=== PATIENT | female | born 1945 | race Caucasian/White ===

== ENCOUNTER 2020-05-27 10:39 | Outpatient (CLI) | payer OTHER, SELFPAY ==
--- NOTE | ~2020-05-27 | MM_ITS ---
EXAMINATION: MM screening [facility] BI w jah HISTORY: Screening mammogram TECHNIQUE: Craniocaudal and mediolateral oblique 3-D tomosynthesis images were obtained and synthetic 2-D images were generated. CAD analysis was submitted and interpreted. COMPARISON: Comparison to multiple prior studies sequentially, with oldest reviewed study dated 12/20. BREAST PARENCHYMAL COMPOSITION: There are scattered areas of fibroglandular density. FINDINGS: There is no evidence of suspicious mass, calcification, or architectural distortion to sugg est malignancy in either breast. There has been no suspicious interval change. IMPRESSION: 1. No mammographic evidence of malignancy. 2. Recommend routine screening mammography in one year. BI-RADS Category 1: Negative Reviewed, dictated and finalized at location A.
== END 2020-05-27 10:40 | disposition home or self-care (01) ==
LOC: ANHIMG 10:47
PROVIDERS: PCP Internal Medicine; Visit Provider Internal Medicine
DX: Z12.31 Encounter for screening mammogram for malignant neoplasm of breast (principal)
CPT/HCPCS: 77063; 77067

== ENCOUNTER 2021-05-30 10:06 | Outpatient (CLI) | payer OTHER, SELFPAY ==
--- NOTE | ~2021-05-30 | MM_ITS ---
EXAMINATION: MM screening [facility] BI w jah HISTORY: Screening mammogram TECHNIQUE: Craniocaudal and mediolateral oblique 3-D tomosynthesis images were obtained and synthetic 2-D images were generated. CAD analysis was submitted and interpreted. COMPARISON: 05/26/2020 bilateral digital screening mammogram 05/24/2019 bilateral diagnostic digital mammogram BREAST PARENCHYMAL COMPOSITION: There are scattered areas of fibroglandular density. FINDINGS: There are scattered bilateral benign calcifications. There is no evidence of suspicious ma ss, calcification, or architectural distortion to suggest malignancy in either breast. There has been no suspicious interval change. IMPRESSION: 1. No mammographic evidence of malignancy. 2. Recommend routine screening mammography in one year. BI-RADS Category 2: Benign finding(s). Reviewed, dictated and finalized at location A.
== END 2021-05-30 10:07 | disposition home or self-care (01) ==
LOC: ANHIMG 10:08
PROVIDERS: PCP Internal Medicine; Visit Provider Internal Medicine
DX: Z12.31 Encounter for screening mammogram for malignant neoplasm of breast (principal)
CPT/HCPCS: 77063; 77067

== ENCOUNTER 2022-07-01 07:56 | Outpatient (CLI) | payer OTHER, SELFPAY ==
--- NOTE | ~2022-07-01 | MM_ITS ---
EXAMINATION: MM screening [facility] BI w jah HISTORY: Screening TECHNIQUE: Craniocaudal and mediolateral oblique 3-D tomosynthesis images were obtained and synthetic 2-D images were generated. CAD analysis was submitted and interpreted. COMPARISON: Comparison to multiple prior studies sequentially, with oldest reviewed study dated 04/28. BREAST PARENCHYMAL COMPOSITION: There are scattered areas of fibroglandular density. FINDINGS: There are developing asymmetries in the upper outer quadrant of both breasts. There are myra ign breast calcifications. No definite architectural distortion. IMPRESSION: 1. Developing nodular asymmetries in the upper outer quadrant of both breasts. 2. Additional mammographic views and possible breast ultrasound are recommended. BI-RADS Category 0: Incomplete: Needs additional imaging evaluation. Reviewed, dictated and finalized at location A. IMPRESSION: 1. Developing nodular asymmetries in the upper outer quadrant of both breasts. 2. Additional mammographic views and possible breast ultrasound are recommended . BI-RADS Category 0: Incomplete: Needs additional imaging evaluation.
== END 2022-07-01 07:57 | disposition home or self-care (01) ==
PROVIDERS: PCP Internal Medicine; Visit Provider Internal Medicine
DX: Z12.31 Encounter for screening mammogram for malignant neoplasm of breast (principal); R92.8 Other abnormal and inconclusive findings on diagnostic imaging of breast
CPT/HCPCS: 77063; 77067

== ENCOUNTER 2022-07-21 13:24 | Outpatient (CLI) | payer OTHER, SELFPAY ==
--- NOTE | ~2022-07-21 | MMUS_ITS ---
EXAMINATION: MM diagnostic [facility] BI w jah, US breast BI limited HISTORY: Developing nodular asymmetries reported in upper outer quadrant of both breasts on 07/01/2022 screening mammogram examination TECHNIQUE: Additional full field ML and ML, MLO and spot CC 3-D tomosynthesis images of both breasts were performed and synthetic 2-D images were generated. CAD analysis was submitted and interpreted. H igh resolution upper outer and lower-outer quadrant bilateral breast ultrasound was performed. COMPARISON: 07/01/2022 bilateral screening mammogram FINDINGS: MAMMOGRAPHIC FINDINGS: No suspicious mass or architectural distortion, malignant calcification, skin thickening or retractio n is evident. Scattered bilateral benign calcifications. ULTRASOUND: No suspicious mass, shadowing or cyst or other significant sonographic abnormality is identified in t he outer half of either breast is sonographically. IMPRESSION: 1. No mammographic evidence of malignancy 2. Routine mammographic screening is recommended BI-RADS Category 2: Benign finding(s). Reviewed, dictated and finalized at location A. IMPRESSION: 1. No mammographic evidence of malignancy 2. Routine mammographic screening is recommended BI-RADS Category 2: Benign finding(s).
== END 2022-07-21 13:25 | disposition home or self-care (01) ==
PROVIDERS: PCP Internal Medicine; Visit Provider Internal Medicine
DX: N64.89 Other specified disorders of breast (principal)
CPT/HCPCS: 76642; 77062; 77066; G0279

== ENCOUNTER 2025-08-13 13:55 | Outpatient (CLI) | payer MEDICARE, SELFPAY ==
--- OUTSIDE RECORDS SUMMARY | 2025-08-13 13:30 | XMS_ITS | Encounter Summary ---
Author Organization [facility] Address [address] [place] [address] Care Team Providers Care Senior Asic Engineer Name Role Phone Unavailable Primary Care Provider Unavailabl e Reason for Referral * Radiology Services (Routine) - Open Specialty Diagnoses / Procedures Referred By Contac t Referred To Contact Diagnoses Leukopenia, unspecified type Procedures US ABDOMEN COMPLETE Kishore Bee MD [address] [facility] [address] [place] [address] Phone: tel: fax: Referral ID Status Reason Start Date Expiration Date Visits Re quested Visits Authorized [id number] Open 08/13/2025 09/13/2026 1 1 Reason for Visit * Reason Comments Establish Care Encounter Details Date Type Department Care Team (Late st Contact Info) Description 08/13/2025 1:30 PM CDT Office Visit [facility] Oncology and Hematology - [place] [address] [place] [address] [address] [place] [address] Kishore Bee MD [facility] [employer] [address] [place] [address] Chronic anemia (Primary Dx); Leukopenia, unspecified type Social History Tobacco Use Types Packs/Day Years Used Date Smoking Tobacco: Former Cigarettes 1 10 1 - 08/13/1975 Smokeless Tobacco: Never Tobacco Cessation:Counseling Given: Not Answered Alcohol Use Standard Drinks/Week Comments Yes 0 (1 standard drink = 0.6 oz pur e alcohol) Occasionally Comments Unknown Sex and Gender Information Value Date Recorded Sex Assigned at Not on file Legal Sex Female 11:33 AM CDT Gender Identity Not on file Sexual Orientation Not on file documented as of this encounter Last Filed Vital Signs Vital Sign Reading Time Taken Comments Blood Pressure 131/70 08/13/2025 1:06 PM CDT Pulse 65 08/13/2025 1:06 PM CDT Temperature 36.3 C (97.4 F) 08/13/2025 1:06 PM CDT Respiratory Rate 16 08/13/2025 1:06 PM CDT Oxygen Saturation 97% 08/13/2025 1:06 PM CDT Inhaled Oxygen Concentration - - Weight 91.4 kg (201 lb 6.4 oz) 08/13/2025 1:06 P M CDT Height 165.1 cm (5' 5) 08/13/2025 1:06 PM CDT Body Mass Index 33.51 08/13/2025 1:06 PM CDT documented in this encounter Progress Notes * Kishore Bee MD - 08/13/2025 1:05 PM CDT Hematology-oncology consult Note Requesting Physician Primary Care Physician No primary care provider on file. Problem list There is no problem list on file for this patient. Previous TREATMENT ? Measurable Disease ? Reason for Visit Yareli Morales is a 80 y.o. female who was referred for consultation for leukopenia. History of present illness The is a pleasant 80-year-old female who is been in good health except history of hypothyroidism, hyperlipidemia and arthritis involving the back and the hands. She denies any night sweats fevers and chills. Her weight and appetite stable. She denies any new lumps bumps and lymphadenopathy. Denies any bleeding and bruising. She denies being a vegetarian. She had labs done in April 2025 showed slightly low WBC count of 3.7 with hemoglobin of 13.9. She denies any frequent infections. According to patient her WBC count are slowly declining. She has no new complaints. Past Medical History Past Medical History: Diagnosis Date Hyperlipidemia Hypothyroidism Surgical History Past Surgical History: Procedure Laterality Date HX HYSTERECTOMY Medications Current Outpatient Medications Medication Sig Dispense Refill levothyroxine 75 mcg tablet Take 75 mcg by mouth daily. No current facility-administered medications for this visit. Allergies No Known Allergies Immunizations: Immunization History Administered Date(s) Administered (Moderna Bivalent)(6 Mos Up) COVID-19 Vaccine - Emergency Use Authorization, MRNA(Pf) 50 Mcg/0.5 MlIm Susp 11/03/2022 (SPIKEVAX) (12 YRS UP PRIMARY SERIES) COVID-19 VACCINE - MRNA-1273(PF) 100 MCG/0.5 ML IM SUSP 09/15/2021, 06/07/2022 Family History Family History Problem Relation Name Age of Onset No Known Problems Father Heart Attack Mother Diabetes Brother Atrial fibrillation Brother Diabetes Brother Heart Disease Brother Social History Social History Tobacco Use Smoking status: Former Current packs/day: 0.00 Average packs/day: 1 pack/day for 10.0 years (10.0 ttl pk-yrs) Types: Cigarettes Start date: 08/13/1965 Quit date: 08/13/1975 Years since quittin.0 Smokeless tobacco: Never Substance Use Topics Alcohol use: Yes Comment: Occasionally Review of Systems Constitutional: Patient did not mention fever; no night sweats; no anorexia; no weight loss; no fatique NEENT: Patient did not mention headache; no change in vision; no change in hearing; no sore throat;no dysphagia Respiratory: Patient did not mention shortness of breath; no pleuritic chest pain; no cough; no hemoptysis Cardiac: Patient did not mention cardiac-like chest pain; no palpitations; no orthopnea; no PND; noDOE Breasts: Patient did not mention tenderness; no masses GI: Patient did not mention abdominal pain; no nausea; no vomiting; no diarrhea; no hematochezia; no melena : Patient did not mention dysuria; no frequency; no hesitancy; no hematuria COMMAND AND CONTROL SPECIALIST: Musculosketetal: Patient did not mention bone pain; no arthralgia; no joint swelling; no myalgia; Skin: Patient did not mention pruritis; no rash; no petechiae; no ecchymoses Endocrine: Patient did not mention polydipsia; no polyuria; no unusual weight gain Neuro: Patient did not mention headache; no change in vision; no sensory changes; no muscle weakness; no confusion; no seizures Psych: Patient did not mention anxiety; no depression; Physical Exam Vitals: As per nursing note Constitutional: Well developed, well nourished, no acute distress, non-toxic appearance Teeth and gum. No signs of infection or swelling. Eyes: PERRL, conjunctiva normal HEENT: Atraumatic, external ears normal, nose normal, oropharynx moist, no pharyngeal exudates. no sinus tenderness Neck- normal range of motion, no tenderness, supple Respiratory: No respiratory distress, normal breath sounds, no rales, no wheezing Cardiovascular: Normal rate, normal rhythm, no murmurs, no gallops, no rubs GI: Soft, nondistended, normal bowel sounds, nontender, no splenomegaly, no hepatomegaly, no mass, no rebound, no guarding : No costovertebral angle tenderness Musculoskeletal: No edema, no tenderness, no deformities. Back- no tenderness Integument: Well hydrated, no rash, Digits and nails inspection normal Lymphatic: No lymphadenopathy noted Neurologic: Alert & oriented x 3, CN 2-12 normal, normal motor function, normal sensory function, no focal deficits noted Psychiatric: Speech and behavior appropriate ? labs No results found for this or any previous visit (from the past 24 hours). Labs from April 2025 showed WBC 3.7 hemoglobin 13.9 MCV 94.6 platelet 227,000 neutrophils 62% lymphocyte 26% Pathology ? Imaging & Other Studies Performance Status? Assessment / Plan: ? Leukopenia. Patient is a pleasant 80-year-old female who has been in good health except history of hypothyroidism and hyperlipidemia referred to me for leukopenia. According the patient herwhite blood cell count is slowly declining. She denies any history of liver disease.Denies any history of alcohol abuse. She does have some arthralgia but denies any history of autoimmune disease. I have discussed the differential diagnosis of leukopenia with the patient that includes autoimmune leukopenia, nutritional deficiencies, drug induced leukopenia, infection related leukopenia, hepatosplenomegaly and lymphoproliferative disorders and bone marrow disorder like MDS. We also discussed possibility of benign essential leukopenia. I will order the workup that will include CBC with differential, CMP, SABRINA, flow cytometric analysis for leukemia, iron studies, vitamin B12 level, methylmalonic acid level, soluble transferrin receptor and abdominal ultrasound. No need for pulmonary biopsy dayna ting at this time. I will discuss these results with patient in 2 weeks. I have answered all questions to patient's satisfaction. Hypothyroidism. Patient is on levothyroxine. Thank you very much for allowing me to participate in Yareli [place]'s evaluation and management. Please feel free to contact if I can be of any further assistance in your patient???s care requiringhematology or oncology evaluation. Sincerely, ? ? Kishore Bee M.D. cell TOBACCO COUNSELING She is not a tobacco/nicotine user. Kishore Bee MD ,08/13/2025 1:59 PM ? Total time spent 60 minutes, two third of the total time spent counseling patient [id number]. CC:? documented in this encounter Plan of Treatment Upcoming Encounters Date Type Department Care Team (Late st Contact Info) Description 09/02/2025 4:30 PM CDT Telephone Check Up [facility] Oncology and Hematology - [place] [address] [facility] [address] [place] [address] Kishore Bee MD [address] [facility] [address] [place] [address] Scheduled Orders Name Type Priority Associated Diagnoses Orde r Schedule SABRINA SCREEN W/REFLEX Lab Routine Chronic anemia Leukopenia, unspecified type Expected: 08/13/2025, Expires: 08/13/2026 CBC WITH DIFFERENTIAL Lab Stat Chronic anemia Leukopenia, unspecified type Expected: 08/13/2025, Expires: 08/13/2026 COMPREHENSIVE METABOLIC PANEL Lab Stat Chronic anemia Leukopenia, unspecified type Expected: 08/13/2025, Expires: 08/13/2026 FLOW CYTOMETRY PANEL Lab Routine Chronic anemia Leukopenia, unspecified type Expected: 08/13/2025, Expires: 08/13/2026 FERRITIN Lab Routine Chronic anemia Expected: 08/13/2025, Expires: 08/13/2026 IRON, TIBC, AND PERCENT SATURATION Lab Routine Chronic anemia Expected: 08/13/2025, Expires: 08/13/2026 METHYLMALONIC ACID Lab Routine Chronic anemia Expected: 08/13/2025, Expires: 08/13/2026 VITAMIN B12 AND FOLATE Lab Routine Chronic anemia Expected: 08/13/2025, Expires: 08/13/2026 TRANSFERRIN RECEPTOR TFR SOLUBLE Lab Routine Chronic anemia Expected: 08/13/2025, Expires: 08/13/2026 US ABDOMEN COMPLETE Imaging Routine Leukopenia, unspecified type 1 Occurrences starting 08/13/2025 until 08/13/2026 documented as of this encounter Visit Diagnoses Diagnosis Chronic anemia- Primary Anemia, unspecified Leukopenia, unspecified type documented in this encounter
--- NOTE | 2025-08-13 14:15 | CY_PTH ---
PATIENT: Yareli Morales LOC: [facility] U#:[id number] AGE/SX: 80/F ROOM: RE08/13/[address]: Kishore Bee MD : [id number] BED: DIS: 08/13/2025 SPEC #: [id number] RECD: 08/14/25 07:03 STATUS: OTTO REQ #: [id number] CHALO: 08/13/25 14:[address]: Kishore Bee DEPT: [facility] Cytology RECD BY: Elaine Johnson ENTERED: 08/14/25 07:04 SP TYPE: Cytology OT DR: Rosenda WagonerMD Tissues: A - Flow Procedures: Flow Cytometry
[2025-08-13 14:19] LABS: Hematocrit 40.1 % (37.0-47.0); Hemoglobin 13.2 g/dL (12.0-15.0); Immature Granulocyte Percent A 0.2 % (0-0.5); Lymphocytes Absolute Auto 1.26 K/mm3 (0.9-3.2); Mean Corpuscular HGB Conc 32.9 g/dl (32-36); Mean Corpuscular Hemoglobin 31.1 pg (26-34); Mean Corpuscular Volume 94.4 fl (80-100); Nucleated Red Blood Cells Absolute Auto 0.000 K/mm3 (0.0-0.012); Nucleated Red Blood Cells Perc 0.0 % (0.0-0.2); Platelet Count Result 236 k/mm3 (150-375); Red Blood Count 4.25 M/mm3 (4.2-5.4); White Blood Count 5.3 K/mm3 (4.5-10.0)
--- OUTSIDE RECORDS SUMMARY | 2025-08-13 14:50 | XMS_ITS | Patient Health Record ---
Author Organization 1 OF [facility] Address [address] [place] [address] Care Team Providers Care Director Of Income Tax Name Role Phone Sandoval, Bala Primary Care Provider Diana Perez Unavailable [phone] Allergies No Known Allergies Reason For Referral No Information Medications Medication SIG (Take, Route, Fr equency, Duration) Notes Start Date End Date Status Levothyroxine Sodium Active Social History Tobacco Use: Social History Observation Description Date Details (start date - stop date) Former Smoker NA - NA Social History Tobacco Use: Social Info Question Answer Notes Tobacco Control (Standard) Tobacco use: Former smoker How long has it been since you last smoked? Greater than 10 years Additional Details Category Social Info Options Details Drugs/Alcohol: Alcohol use: Social alcoho l use Problems Problem Type SNOMED Code ICD Code Onset Dates Problem Status W/U Status Risk Notes Problem Plantar fascial fibromatosis (39840709) Plantar fasciitis, right (M72.2) Active confirmed Vital Signs Height 65 in 03/21/2025 Weight 200 lbs 03/21/2025 BMI 33.28 kg/m2 03/21/2025 Encounters Encounter Location Date Provider Diagnosis 1 OF [facility] [address] [place] [address] 03/21/2025 Diana Barton Plantar fasciitis, right M72.2 ; Right Achilles tendinitis M76.61 and Right foot pain M79.671 Assessments Encounter Date Diagnosis (ICD Code) Assessment Notes Treatment Notes Treatment Clinical Notes Section Notes 03/21/2025 Plantar fasciitis, right (ICD-10 - M72.2) Patient visit today included a review of medical history, review of systems, physical exam and discussion of exam findings, test results, and discussed the nature and etiology of plantar fasciitis/Kopperl s tendonitis as well as treatment options. I discussed the importance of wearing good supportive shoes and avoiding ambulation in slippers, flip flops or walking barefoot and I encouraged the patient to wear a good quality athletic sneaker whenever possible. Discussed treatment options today including stretching exercises, icing, Rx NSAIDs, prefab orthotics, steroid injections, physical therapy, use of a night splint, immobilization. Dispensed literature regarding plantar fasciitis. She was given stretching exercises to perform. She will continue to ice her foot. She will consider purchasing prefabricated orthotics. 03/21/2025 Right Achilles tendinitis (ICD-10 - M76.61) 03/21/2025 Right foot pain (ICD-10 - M79.671) Plan Of Treatment No Information Insurance Providers Payer Name Payer Address Payer Phone Subscriber Number Group Number Insured Name Patient Relationship to Insured Coverage Start Date Coverage End Date [employer] Medicare Complete [address] [address] [place] [address] [id number] Yareli Morales Self - patient is the insured Medical (General) History Medical History History ICD Code Arthritis
--- OUTSIDE RECORDS SUMMARY | 2025-08-13 14:50 | XMS_ITS | Clinical Summary ---
Author Organization [facility] [address]on[address]dalla [address] Address [address] [place] [address] Care Team Providers Care Steam Trap Worker Name Role Phone Unavailable Primary Care Provider Unavailabl e Allergies No known active allergies Medications levothyroxine 75 mcg tablet Take 75 mcg by mouth daily. Active Active Problems No known active problems Encounters Date Type Department Care Team Description 08/13/2025 1:30 PM CDT Office Visit [facility] Oncology and Hematology [facility] [address] [place] [address] Kishore Bee MD Chronic anemia (Primary Dx); Leukopenia, unspecified type 08/13/2025 Abstract [facility] Oncology and [facility] [address] [place] [address] Kishore Bee MD from Last 3 Months Family History Medical History Relation Name Comments Atrial fibrillation Brother 1 Diabetes Brother 1 Diabetes Brother 2 Heart Disease Brother 2 No Known Problems Father Heart Attack Mother Relation Name Status Comments Brother 1 Alive Brother 2 Father Mother Social History Tobacco Use Types Packs/Day Years [...] on file Sexual Orientation Not on file Last Filed Vital Signs Vital Sign Reading [...] Mass Index 33.51 08/13/2025 1:06 PM CDT Plan of Treatment Upcoming Encounters Date Type Department Care Team (Late st Contact Info) Description 09/02/2025 4:30 PM CDT Telephone Check Up [facility] Oncology and Hematology - [place] [address] [facility] [address] [place] [address] Kishore Bee MD [address] [facility] [address] [place] [address] Health Maintenance Due Date Last Done Comments OSTEOPOROSIS SCREENING 2009 RSV VACCINE (60+ or ) (1 - 1-dose 75+ series) 2019 ZOSTER VACCINE (2 of 2) 01/01/2022 11/06/2021, 04/26 INFLUENZA VACCINE (#1) 2025 , 08/04/2022, 07/06/2021, Additional history exists COVID-19 Vaccine (6 - 2024-2 6 season) 2025 11/03/2022, 06/07/2022, 09/15/2021, Additional history exists DTAP/TDAP/TD VACCINES (3 - T d or Tdap) 09/15/2028 09/15/2018, 07/24/2007 PNEUMOCOCCAL VACCINE 50+ YEARS Completed 03/06/2018 , 09/18/2013 Medicare [place]) Preventative Visit/Annual Wellness Visit Completed 05/03/2025 Insurance [place] [id number]
--- OUTSIDE RECORDS SUMMARY | 2025-08-13 14:50 | XMS_ITS | Encounter Summary ---
Author Organization [facility] Health Address [address] [place] [address] Care Team Providers Care Ged Preparation Teacher Name Role Phone Unavailable Primary Care Provider Unavailabl e Prior Encounters Date Type Department Care Team Description 11/26/2019 Converted 13x Documents [facility] [address] [place] [address] <No scans attached> 11/26/2019 Converted CPS Chart Documents [facility] [address] [place] [address] <No scans attached> Plan of Treatment Not on file Procedures Procedure Name Priority Date/Time Associated Diagnosis Comments TREATMENT OF COMPLICATIONS (POST-SURGICAL) - UNUSUAL CIRCUMSTANCES, BY REPORT Routine 12/25/2019 12:00 AM PST 18 BONE REPLACEMENT GRAFT FOR RIDGE PRESERVATION - PER SITE Routine 11/08/2019 12:00 AM PST 15 BONE REPLACEMENT GRAFT FOR RIDGE PRESERVATION - PER SITE Routine 11/08/2019 12:00 AM PST 18 GUIDED TISSUE REGENERATION, NATURAL TEETH - RESORBABLE BARRIER, PER SITE Routine 11/08/2019 12:00 AM PST 15 GUIDED TISSUE REGENERATION, NATURAL TEETH - RESORBABLE BARRIER, PER SITE Routine 11/08/2019 12:00 AM PST 14 UL OSSEOUS SURGERY ONE TO THREE CONTIGUOUS TEETH Routine 11/08/2019 12:00 AM PST 19 LL OSSEOUS SURGERY ONE TO THREE CONTIGUOUS TEETH Routine 11/08/2019 12:00 AM PST 18 EXTRACTION, ERUPTED TOOTH REQUIRING REMOVAL OF BONE AND/OR SECTIONING OF TOOTH Routine 11/08/2019 12:00 AM PST 15 EXTRACTION, ERUPTED TOOTH REQUIRING REMOVAL OF BONE AND/OR SECTIONING OF TOOTH Routine 11/08/2019 12:00 AM PST IMPLANT /ABUTMENT SUPPORTED REMOVABLE DENTURE FOR EDENTULOUS ARCH MAXILLARY Routine 10/23/2019 12:00 AM PST 14 IMPLANT Routine 10/23/2019 12:00 AM PST PERIO CONSULT Routine 10/23/2019 12:00 AM PST ORAL HYGIENE INSTRUCTIONS Routine 2018 12:00 AM PST ADJUNCTIVE PRE-DIAGNOSTIC TEST THAT AIDS IN DETECTION OF MUCOSAL ABNORMALITIES Routine 10/17/2019 12:00 AM PST PERIODIC ORAL EVALUATION - ESTABLISHED PATIENT Routine 10/17/2019 12:00 AM PST PERIO MAINTENANCE Routine 10/17/2019 12: 00 AM PST BITEWINGS - FOUR RADIOGRAPHIC IMAGES Routine 10/17/2019 12:00 AM PST ADDITIONAL X-RAY Routine 10/17/2019 12:0 0 AM PST ADDITIONAL X-RAY Routine 10/17/2019 12:0 0 AM PST ADDITIONAL X-RAY Routine 10/17/2019 12:0 0 AM PST ADDITIONAL X-RAY Routine 10/17/2019 12:0 0 AM PST ADDITIONAL X-RAY Routine 10/17/2019 12:0 0 AM PST SINGLE X-RAY Routine 10/17/2019 12:00 AM PST UL SHER DECON/QD Routine 01/11/2019 12:00 AM PST UL PERIODONTAL SCALING AND ROOT PLANING - FOUR OR MORE TEETH PER QUADRANT Routine 01/11/2019 12:00 AM PST LL PERIODONTAL SCALING AND ROOT PLANING - FOUR OR MORE TEETH PER QUADRANT Routine 01/11/2019 12:00 AM PST ORAL HYGIENE INSTRUCTIONS Routine 2018 12:00 AM PST LR SHER DECON/QD Routine 01/11/2019 12:00 AM PST LL SHER DECON/QD Routine 01/11/2019 12:00 AM PST UR SHER DECON/QD Routine 01/11/2019 12:00 AM PST LOCAL ANESTHESIA IN CONJUNCTION WITH OPERATIVE OR SURGICAL PROCEDURES Routine 01/11/2019 12:00 AM PST UR PERIODONTAL SCALING AND ROOT PLANING - FOUR OR MORE TEETH PER QUADRANT Routine 12/26/2018 12:00 AM PST LR PERIODONTAL SCALING AND ROOT PLANING - FOUR OR MORE TEETH PER QUADRANT Routine 12/26/2018 12:00 AM PST ORAL HYGIENE INSTRUCTIONS Routine 2018 12:00 AM PST LOCAL ANESTHESIA IN CONJUNCTION WITH OPERATIVE OR SURGICAL PROCEDURES Routine 12/26/2018 12:00 AM PST 14 IMPLANT CROWN UNIT Routine 12/04/2018 12:00 AM PST 29 DO AMALGAM 2 SURFACE Routine 12/04/19 19 12:00 AM PST 30 ENDODONTIC THERAPY, MOLAR TOOTH (EXCLUDING FINAL MORMONISM) Routine 12/04/2018 12:00 AM PST 30 CROWN PFM POST Routine 12/04/2018 12: 00 AM PST 19 CROWN PFM POST Routine 12/04/2018 12: 00 AM PST 15 CROWN PFM POST Routine 12/04/2018 12: 00 AM PST ADJUNCTIVE PRE-DIAGNOSTIC TEST THAT AIDS IN DETECTION OF MUCOSAL ABNORMALITIES Routine 12/04/2018 12:00 AM PST COMPREHENSIVE ORAL EVALUATION - NEW OR ESTABLISHED PATIENT Routine 12/04/2018 12:00 AM PST PANORAMIC RADIOGRAPHIC IMAGE Routine 12/04/2018 12:00 AM PST INTRAORAL - COMPREHENSIVE SERIES OF RADIOGRAPHIC IMAGES Routine 12/04/2018 12:00 AM PST PLAN VISIT FEE Routine 12/04/2018 12:00 AM PST INTRAORAL PHOTO Routine 12/04/2018 12:00 AM PST INTRAORAL PHOTO Routine 12/04/2018 12:00 AM PST INTRAORAL PHOTO Routine 12/04/2018 12:00 AM PST INTRAORAL PHOTO Routine 12/04/2018 12:00 AM PST 31 MO COMPOSITE FILLING Routine 12/04/19 19 12:00 AM PST 20 DO COMPOSITE FILLING Routine 12/04/19 19 12:00 AM PST 18 MO COMPOSITE FILLING Routine 12/04/19 19 12:00 AM PST 5 DO COMPOSITE FILLING Routine 9 12:00 AM PST 4 DO COMPOSITE FILLING Routine 9 12:00 AM PST 13 CROWN Routine 12/04/2018 12:00 AM PST 12 CROWN Routine 12/04/2018 12:00 AM PST 3 MODBL COMPOSITE FILLING Routine 2018 12:00 AM PST Visit Diagnoses Not on file
--- OUTSIDE RECORDS SUMMARY | 2025-08-13 14:50 | XMS_ITS | Clinical Summary ---
Author Organization [facility] Address [address] [place] [address] Care Team Providers Care Gas Meter Repair Supervisor Name Role Phone Unavailable Primary Care Provider Unavailabl e Social History Tobacco Use Types Packs/Day Years Used Date Smoking Tobacco: Never Assessed Comments Unknown Sex and Gender Information Value Date Recorded Sex Assigned at Not on file Legal Sex Female 12:20 AM CDT Gender Identity Not on file Sexual Orientation Not on file Plan of Treatment Health Maintenance Due Date Last Done Comments DTaP, Tdap and Td Vaccines ( 1 - Tdap) 1963 Zoster Vaccines (1 of 2) 1994 Annual Medicare Wellness Visit 2009 Dexa Scan (General) 2009 Pneumococcal Vaccine: 50+ Ye ars (2 of 2 - PPSV23) 03/06/2019 03/06/2018 RSV Immunization or 60+ Years (1 - 1-dose 75+ series) 2019 COVID-19 Vaccine ( - 2023-2 5 season) 2025 Meningococcal B Vaccine Aged Out No l onger eligible based on patient's age to complete this topic Meningococcal Vaccine Aged Out No swati gonzalo eligible based on patient's age to complete this topic RSV Immunizations Under 20 Months Aged Out No longer eligible based on patient's age to complete this topic Insurance [employer]
--- OUTSIDE RECORDS SUMMARY | 2025-08-13 14:50 | XMS_ITS | Clinical Summary ---
Author Organization [facility] Health Address [address] [place] [address] Care Team Providers Care Labor Union Business Representative Name Role Phone Unavailable Primary Care Provider Unavailabl e Social History Tobacco Use Types Packs/Day Years Used Date Smoking Tobacco: Never Assessed Comments Unknown Sex and Gender Information Value Date Recorded Sex Assigned at Not on file Legal Sex Unknown 11/29/2019 1:24 AM PST Gender Identity Not on file Sexual Orientation Not on file Plan of Treatment Not on file
--- OUTSIDE RECORDS SUMMARY | 2025-08-13 14:50 | XMS_ITS | Encounter Summary ---
Author Organization [facility] Beck [facility] Address [address] [place] [address] Care Team Providers Care Mononitrotoluene Operator Name Role Phone Unavailable Primary Care Provider Unavailabl e Encounter Details Date Type Department Care Team ([facility] Contact Info) Description 08/13/2025 Abstract [facility] Oncology and Hematology - [address] [place] [address] Kishore Bee MD [address] [place] [address] [employer] [address] [place] [phone] Social History Tobacco Use Types Packs/Day Years Used Date Smoking Tobacco: Former Cigarettes 1 10 1 - 08/13/1975 Smokeless Tobacco: Never Alcohol Use Standard Drinks/Week Comments Yes 0 (1 standard drink = 0.6 oz pur e alcohol) Occasionally Comments Unknown Sex and Gender Information Value Date Recorded Sex Assigned at Not on file Legal Sex Female 11:33 AM CDT Gender Identity Not on file Sexual Orientation Not on file documented as of this encounter Plan of Treatment Upcoming Encounters Date Type Department Care Team (Late Contact Info) Description 09/02/2025 4:30 PM CDT Telephone Check Up [facility] Oncology and Hematology - [address] [place] [address] Kishore Bee MD [address] [employer] [address] [place] [address] documented as of this encounter Visit Diagnoses Not on filedocumented in this encounter
[2025-08-13 16:20] LABS: Iron 125 ug/dL (37-170)
[2025-08-13 16:21] LABS: Alanine Aminotransferase 19 U/L (6-35); Albumin Level 4.1 g/dL (3.5-5.1); Alkaline Phosphatase 69 U/L (38-126); Anion Gap 7 mmol/L (4-12); Aspartate Amino Transferase 43 U/L (14-36); Bilirubin,Total 0.4 mg/dL (0.2-1.3); Blood Urea Nitrogen 17 mg/dL (7-17); Calcium 9.1 mg/dL (8.4-10.2); Carbon Dioxide 27 mmol/L (22-30); Chloride 103 mmol/L (98-107); Estimated Glomerular Filt Rate > 60; Glucose 96 mg/dL (65-110); Potassium 4.2 mmol/L (3.4-5.0); Sodium 137 mmol/L (137-145); Total Protein 7.4 g/dL (6.3-8.2)
[2025-08-13 16:30] LABS: Percent Iron Saturation 38 % (20-50)
[2025-08-13 17:01] LABS: Ferritin 75.40 ng/mL (11.1-264)
[2025-08-13 17:33] LABS: Vitamin B12 380.0 pg/mL (239-931)
[2025-08-14 18:07] LABS: ANA by IFA Rfx Titer/Pattern Negative (.)
== END 2025-08-13 13:56 | disposition home or self-care (01) ==
PROVIDERS: PCP Internal Medicine; Visit Provider Internal Medicine Hematology & Oncology
DX: D64.9 Anemia, unspecified (principal); D72.819 Decreased white blood cell count, unspecified
CPT/HCPCS: 36415; 80053; 82607; 82728; 82746; 83540; 83550; 84238; 85025; 86038; 88184

== ENCOUNTER 2025-08-26 07:39 | Outpatient (CLI) | payer MEDICARE, SELFPAY ==
--- NOTE | ~2025-08-26 | US_ITS ---
Examination: US abdomen complete Clinical History: leukopenia . Comparison: None Technique: Complete abdominal sonography Findings: Liver: Normal size. Normal echotexture. No intrahepatic biliary ductal dilatation. Normal hepatopedal flow main portal vein. Common duct: Normal caliber, 4 mm. Gallbladder: No stones. No wall thickening. No pericholecystic fluid. Spleen: Unremarkable. Pancreas: Visualized portions unremarkable. Kidneys: Unremarkable. Aorta: No aneurysmal dilatation. Retrohepatic IVC: Unremarkable. IMPRESSION: 1. No acute findings. Reviewed, dictated and finalized at location R. IMPRESSION: 1. No acute findings.
--- OUTSIDE RECORDS SUMMARY | 2025-08-26 07:49 | XMS_ITS | Encounter Summary ---
Author Organization [facility] Beck [facility] Address [address] [place] [address] Care Team Providers Care Diathermy Equipment Repairer Name Role Phone Unavailable Primary Care Provider Unavailabl e Encounter Details Date Type Department Care Team ([facility] Contact Info) Description 08/21/2025 Orders Only [facility] Oncology and Hematology - [address] [place] [address] Kishore Bee MD [facility] [employer] [address] [place] [phone] Social History Tobacco Use Types Packs/Day [...] 09/02/2025 4:30 PM CDT Telephone Check Up [facility] Oncology and Hematology - [address] [place] [address] Kishore Bee MD [address] [employer] [address] [place] [address] documented as of this encounter Procedures Procedure Name Priority Date/Time Associated Diagnosis Comments CHG SOLUBLE TRANSFERRIN RECEPTOR Routine 08/13/2025 12:41 PM CDT documented in this encounter Results * CHG SOLUBLE TRANSFERRIN RECEPTOR (08/13/2025 12:41 PM CDT) Kishore Bee MD [facility] - LABORATORY Final Result documented in this encounter Visit Diagnoses Not on filedocumented in this encounter
--- OUTSIDE RECORDS SUMMARY | 2025-08-26 07:49 | XMS_ITS | Clinical Summary ---
Author Organization [facility] Health Address [address] [place] [address] Care Team Providers Care Coal Getter Name Role Phone Unavailable Primary Care Provider [...]
--- OUTSIDE RECORDS SUMMARY | 2025-08-26 07:49 | XMS_ITS | Clinical Summary ---
Author Organization [facility] Address [address] [place] [address] Care Team Providers Care Marketing Operations Associate Name Role Phone Bala Sandoval MD Primary Care Provider [phone] Encounters Date Type Department Care Team Description 08/21/2025 8:12 AM CDT - 08/21/2025 11:59 PM CDT Hospital Encounter [facility] [address] [place] [phone] Abnormal mammogram Discharge Disposition: Discharge to home or self care 08/21/2025 8:12 AM CDT - 08/21/2025 11:59 PM CDT Hospital Encounter [facility] [address] [place] [phone] Abnormal mammogram Discharge Disposition: Discharge to home or self care 08/15/2025 1:20 PM CDT - 08/15/2025 11:59 PM CDT Hospital Encounter [facility] [address] [place] [phone] Screening mammogram, encounter for Discharge Disposition: Discharge to home or self care from Last 3 Months Surgical History Surgery Date Site/Laterality Comments HYSTERECTOMY Family History Medical History Relation Name Comments Heart disease Brother 1 Family history of cardiac disorder - (Added by TW Conv) Diabetes Brother 2 Family history of diabetes mellitus - (Added by TW Conv) Arthritis Father Family history of arthritis - (Added by TW Conv) Diabetes Father Family history of diabetes mellitus - (Added by TW Conv) Gout Father Family history of gout - (Added by TW Conv) Hypertension Father Family history of hypertension - (Added by TW Conv) Arthritis Mother Family history of arthritis - (Added by TW Conv) Heart disease Mother Family history of cardiac disorder - (Added by TW Conv) Relation Name Status Comments Brother 1 Brother 2 Father Mother Social History Tobacco Use Types Packs/Day Years Used Date Smoking Tobacco: Former Comments No Sex and Gender Information Value Date Recorded Sex Assigned at Not on file Legal Sex Female 7:08 PM CYTOLOGY SUPERVISOR Gender Identity Not on file Sexual Orientation Not on file Obstetrics History Para Term AB IAB SAB Ectopic Multiple Livin g Live Births 0 0 0 0 0 0 0 0 0 0 0 Last Filed Vital Signs Vital Sign Reading Time Taken Comments Blood Pressure - - Pulse - - Temperature - - Respiratory Rate - - Oxygen Saturation - - Inhaled Oxygen Concentration - - Weight 83.6 kg (184 lb 5.9 oz) 08/18/2017 10:03 AM CDT Height 167.6 cm (5' 6) 08/18/2017 10:03 AM CDT Body Mass Index 29.76 08/18/2017 10:03 AM CDT Plan of Treatment Health Maintenance Due Date Last Done Comments Depression Screening 1944 Fall Risk Assessment 1944 Osteoporosis Screening-Bone Density Scan 1944 Hepatitis B Screening 1962 Well Visit 65+ 2009 Zoster Vaccine (2 of 2) 01/01/2022 11/06/2021, 04/26 Covid-19 Vaccine (6 - 2024-2 6 season) 2025 03/30/2023, 06/07/2022, 09/15/2021, Additional history exists DTaP/Tdap/Td Vaccine (4 - Td or Tdap) 09/15/2028 09/15/2018, 07/24/2007, 07/24/2007 Pneumococcal vaccine 65+ Completed 03/06/2018, 09/07 Influenza Vaccine Completed 08/12/2025, , 08/04/2022, Additional history exists Procedures Procedure Name Priority Date/Time Associated Diagnosis Comments US BREAST LEFT LIMITED Schedule Routine, Read Routine (OP Routine) 08/21/2025 9:19 AM CDT Abnormal mammogram DIAGNOSTIC MAMMOGRAM LEFT W VITALIY Schedule Routine, Read Routine (OP Routine) 08/21/2025 8:23 AM CDT Abnormal mammogram SCREENING MAMMOGRAM BILATERAL W VITALIY Schedule Routine, Read Routine (OP Routine) 08/15/2025 1:42 PM CDT Screening mammogram, encounter for from Last 3 Months Results * US Breast Left Limited (08/21/2025 9:19 AM CDT) Anatomical Region Laterality Modality Breast Left Ultrasound 08/21/2025 9:26 AM CDT Impressions 08/21/2025 9:26 AM CDT No mammographic or sonographic evidence of malignancy in the left breast. Findings and recommendations were communicated to the patient. OVERALL FINAL ASSESSMENT: BI-RADS Category 2: Benign. RECOMMENDATION: Annual screening mammography is recommended. The patient's information was entered into a reminder system with a target due date for the next mammogram. Electronically signed by: Alphonse Curz M.D. Narrative 08/21/2025 9:26 AM CDT EXAMINATION: DIAGNOSTIC MAMMOGRAM LEFT W VITALIY, US BREAST LEFT LIMITED HISTORY: Abnormal screening mammogram. COMPARISON: Prior mammograms. TECHNIQUE: Full field digital mammographic views of the left breast was performed, including computer aided detection (CAD) and tomosynthesis. Targeted left breast sonogram was performed. BREAST PARENCHYMAL COMPOSITION: There are scattered areas of fibroglandular density. MAMMOGRAM FINDINGS: Scattered benign-appearing calcifications are identified in the left breast. No suspicious masses are identified. The recently described asymmetries efface on spot compression views. No suspicious mass, calcification or area of architectural distortion is identified in the left breast. SONOGRAM FINDINGS: Sonographic evaluation of the left breast in the 10-11 o'clock location 5 cm from the nipple demonstrates no evidence of abnormal mass or fluid collection. Sonographic evaluation of the left breast in the 12-1 o'clock location 8 cm from the nipple demonstrates no evidence of abnormal mass or fluid collection. us Charmaine Kellogg NP IMG MAMMO PROCEDURES Fi nal Result * Diagnostic Mammogram Left W Vitaliy (08/21/2025 8:23 AM CDT) Anatomical Region Laterality Modality Breast Left Mammography 08/21/2025 9:26 AM CDT Impressions 08/21/2025 9:26 AM CDT No mammographic or sonographic evidence of malignancy in the left breast. Findings and recommendations were communicated to the patient. OVERALL FINAL ASSESSMENT: BI-RADS Category 2: Benign. RECOMMENDATION: Annual screening mammography is recommended. The patient's information was entered into a reminder system with a target due date for the next mammogram. Electronically signed by: Alphonse Cruz M.D. Narrative 08/21/2025 9:26 AM CDT EXAMINATION: DIAGNOSTIC MAMMOGRAM LEFT W VITALIY, US BREAST LEFT LIMITED HISTORY: Abnormal screening mammogram. COMPARISON: Prior mammograms. TECHNIQUE: Full field digital mammographic views of the left breast was performed, including computer aided detection (CAD) and tomosynthesis. Targeted left breast sonogram was performed. BREAST PARENCHYMAL COMPOSITION: There are scattered areas of fibroglandular density. MAMMOGRAM FINDINGS: Scattered benign-appearing calcifications are identified in the left breast. No suspicious masses are identified. The recently described asymmetries efface on spot compression views. No suspicious mass, calcification or area of architectural distortion is identified in the left breast. SONOGRAM FINDINGS: Sonographic evaluation of the left breast in the 10-11 o'clock location 5 cm from the nipple demonstrates no evidence of abnormal mass or fluid collection. Sonographic evaluation of the left breast in the 12-1 o'clock location 8 cm from the nipple demonstrates no evidence of abnormal mass or fluid collection. us Charmaine Kellogg NP IMG MAMMO PROCEDURES Fi nal Result * (ABNORMAL) Screening Mammogram Bilateral W Vitaliy (08/15/2025 1:42 PM CDT) Anatomical Region Laterality Modality Breast Bilateral Mammography Impressions 08/16/2025 9:45 AM CDT Left 1) Focal Asymmetry: Left breast focal asymmetry in the inner region in the anterior depth. Assessment: 0 - Incomplete. Diagnostic mammogram with possible ultrasound is recommended. 2) Focal Asymmetry: Left breast focal asymmetry in the upper region in the middle depth. Assessment: 0 - Incomplete. Diagnostic mammogram with possible ultrasound is recommended. Right No evidence of malignancy. OVERALL BI-RADS FINAL ASSESSMENT: 0 - Incomplete: Needs Additional Imaging Evaluation RECOMMENDATIONS: Recommend left breast diagnostic mammogram with possible ultrasound. Narrative 08/16/2025 9:45 AM CDT EXAMINATION: Screening Mammogram Bilateral W Vitaliy: 08/15/2025 COMPARISON: Relevant prior studies available at the time of interpretation were reviewed, including the most recent mammogram on: 08/14/2024. TECHNIQUE: Mammography was performed with 2D and digital breast tomosynthesis (DBT) images. CAD was utilized. BREAST PARENCHYMAL COMPOSITION: There are scattered areas of fibroglandular density. FINDINGS: Left 1) Focal Asymmetry: There is a focal asymmetry seen in the inner region of the left breast in the anterior depth on the CC view. This is a new finding. This finding needs additional imaging evaluation. 2) Focal Asymmetry: There is a focal asymmetry seen in the upper region of the left breast in the middle depth on the MLO view. This finding needs additional imaging evaluation. Right There is no suspicious mass, calcification, or architectural distortion. us Self Screening Mammogram IMG MAMMO PROCEDURES Fi nal Result from Last 3 Months Insurance [facility] Address: [address] [address] [place] [address] [facility] MEDICARE ADVANTAGE [facility] Address: [facility] [address] [place] [address] Care Teams Marketing Operations Associate Relationship Specialty Start Date End Date Bala Sandoval MD [address] [facility] [place] [address] PCP - General Family Medicine 05/25/24
--- OUTSIDE RECORDS SUMMARY | 2025-08-26 07:49 | XMS_ITS | Clinical Summary ---
Author Organization [facility] Address [address] [place] [address] Care Team Providers Care Pulling Machine Operator Name Role Phone Unavailable Primary Care [...] 50+ Ye ars (2 of 2 - PCV20 or PCV21) 03/06/2019 03/06/2018 RSV Immunization or 60+ Years (1 - 1-dose 75+ series) 2019 COVID-19 Vaccine ( - 2023-2 5 season) 2025 Influenza Adult (#1) 2025 08/20/2020 Hepatitis A Vaccines Aged Out No long er eligible based on patient's age to complete this topic Meningococcal B Vaccine Aged Out No l onger eligible based on patient's age to complete this topic Meningococcal Vaccine Aged Out No swati gonzalo eligible based on patient's age to complete this topic RSV Immunizations Under 20 Months Aged Out No longer eligible based on patient's age to complete this topic Insurance [employer]
--- OUTSIDE RECORDS SUMMARY | 2025-08-26 07:49 | XMS_ITS | Encounter Summary ---
Author Organization [facility] Health Address [address] [place] [address] Care Team Providers Care Vb Net Developer Name Role Phone Unavailable Primary Care Provider Unavailabl e Prior Encounters Date Type Department Care Team Description 11/26/2019 Converted 13x Documents [facility] [facility] [address] [place] [address] <No scans attached> 11/26/2019 Converted CPS Chart Documents [facility] [address] [place] [address] <No scans attached> Plan of Treatment [...] 30 ENDODONTIC THERAPY, MOLAR TOOTH (EXCLUDING FINAL MU-ISM) Routine 12/04/2018 12:00 AM PST 30 CROWN [...]
--- OUTSIDE RECORDS SUMMARY | 2025-08-26 07:49 | XMS_ITS | Clinical Summary ---
Author Organization [facility] Adonay abdalla Luis Carlos Address [address] [place] [address] Care Team Providers Care Ocular Care Technologist Name Role Phone Unavailable Primary Care Provider Unavailabl e Allergies No known active allergies Medications levothyroxine 75 mcg tablet Take 75 mcg by mouth daily. Active Active Problems No known active problems Encounters Date Type Department Care Team Description 08/21/2025 Orders Only [facility] Oncology and Hematology - [address] [place] [phone] Kishore Bee MD 08/20/2025 External Device Data ST[facility] ABSTRACTION Provider, Abstract 08/20/2025 External Device Data [place] ABSTRACTION Provider, Abstract 08/20/2025 External Device Data ST[place] ABSTRACTION Provider, Abstract 08/20/2025 Orders Only [facility] Oncology and Hematology - [address] [place] [address] Kishore Bee MD 08/19/2025 Orders Only [facility] Oncology and Hematology - [address] [place] [address] Kishore Bee MD 08/13/2025 1:30 PM CDT Office Visit [facility] Oncology and Hematology - [address] [place] [address] Kishore Bee MD Chronic anemia (Primary Dx); Leukopenia, unspecified type 08/13/2025 Abstract [facility] Oncology and Hematology [address] [place] [address] Kishore Bee MD from Last [...] 09/02/2025 4:30 PM CDT Telephone Check Up [facility] Oncology and Hematology - [address] [facility] [address] [place] [address] Kishore Bee MD [address] [facility] [address] [place] [address] Health Maintenance Due Date Last [...] YEARS Completed 03/06/2018 , 09/18/2013 [place] Preventative Visit/Annual Wellness Visit Completed 05/03/2025 Procedures Procedure Name Priority Date/Time Associated Diagnosis Comments FLOW CYTOMETRY REPORT Routine 08/14/2025 11:15 AM CDT METHYLMALONIC ACID Routine 08/13/2025 2: 54 PM CDT CHG SOLUBLE TRANSFERRIN RECEPTOR Routine 08/13/2025 12:41 PM CDT from Last 3 Months Results * FLOW CYTOMETRY REPORT (08/14/2025 11:15 AM CDT) us Kishore Bee MD PATHOLOGY/CYTOLOGY ORDERABLES F inal Result * METHYLMALONIC ACID (08/13/2025 2:54 PM CDT) Blood us Kishore Bee MD CHEMISTRY ORDERABLES Final Resu lt * CHG SOLUBLE TRANSFERRIN RECEPTOR (08/13/2025 12:41 PM CDT) us Kishore Bee MD [facility] - LABORATORY Final Result from Last 3 Months Insurance [facility] [id number] [place] [id number]
--- OUTSIDE RECORDS SUMMARY | 2025-08-26 07:49 | XMS_ITS | Patient Health Record ---
Author Organization 1 OF [facility] Address [address] [place] [address] Care Team Providers Care Corporate Director Of Pharmacy Name Role Phone Sandoval, Bala Primary Care Provider Diana Perez Unavailable [phone] Allergies No Known Allergies Reason For Referral [...] Status Risk Notes Problem Plantar fascial fibromatosis (78845633) Plantar fasciitis, right (M72.2) Active confirmed Vital Signs Height 65 in 03/21/2025 Weight 200 lbs 03/21/2025 BMI 33.28 kg/m2 03/21/2025 Encounters Encounter Location Date Provider Diagnosis 1 OF [facility] [address] [place] [address] 03/21/2025 Diana Barton Plantar fasciitis, right M72.2 [...] discussed the nature and etiology of plantar fasciitis/[place] s tendonitis as well as treatment options. [...] Date [employer] Medicare Complete [address] [address] [place] [address] [id number] Yareli Morales Self - patient is the insured Medical (General) History Medical History History ICD Code Arthritis
== END 2025-08-26 07:40 | disposition home or self-care (01) ==
PROVIDERS: Visit Provider Internal Medicine Hematology & Oncology
DX: D72.819 Decreased white blood cell count, unspecified (principal)
CPT/HCPCS: 76700